=== PATIENT | female | born 1995 | race Caucasian/White ===

== ENCOUNTER 2019-08-09 10:21 | Emergency (ER) | payer BC ==
[~2019-08-09] VITALS: Ht 170.2 cm; Wt 90.7 kg
[~2019-08-09 10:21] MED LIST: DORYX MPC120 MG PO
[2019-08-09] MEDS ORDERED: ENBRACE HR SOF1 EACH PO (10:35)
[2019-08-09 10:47] VITALS: BP 109/79
== END 2019-08-09 10:48 | disposition home or self-care (01) ==
LOC: M.ERS 10:21
DX: N61.0 Mastitis without abscess (principal)